=== PATIENT | female | born 1995 | race Caucasian/White ===

== ENCOUNTER 2018-05-05 13:20 | Emergency (ER) | payer MEDICAID ==
--- NOTE | 2018-05-05 13:45 | EDM.PDOC ---
ED HPI GENERAL MEDICAL PROBLEM - General Chief Complaint: ENT Problem Stated Complaint: TOOTH PAIN CAUSING EAR ACHE Time Seen by Provider: 05/05/18 13:39 Source of Information: Reports: Patient History Limitations: Reports: No Limitations - History of Present Illness INITIAL COMMENTS - FREE TEXT/NARRATIVE: Patient comes in with complaints of left lower tooth pain for the last 2 days. Denies fever, chills, or general illness. Does endorse some left sided ear pain with this. Is unable to tell me when her last dental visit was due to how long it has been since her last visit. She denies all other complaints when asked. Allergies to PCN and amoxicillin. Onset: Gradual Onset Date: 05/03/18 Duration: Getting Worse Left Oral/Mouth Pain Score (Numeric/FACES): 10 - Related Data Allergies Allergy/AdvReac Type Severity Reaction Status Date / Time amoxicillin Allergy Rash Verified 05/05/18 13:37 Penicillins Allergy Rash Verified 05/05/18 13:37 Past Medical History Psychiatric History: Reports: Depression Social & Family History - Tobacco Use Smoking Status *Q: Unknown Ever Smoked ED ROS GENERAL - Review of Systems Review Of Systems: See Below Constitutional: Reports: No Symptoms HEENT: Reports: Dental Pain, Ear Pain Respiratory: Reports: No Symptoms Cardiovascular: Reports: No Symptoms Endocrine: Reports: No Symptoms GI/Abdominal: Reports: No Symptoms : Reports: No Symptoms Musculoskeletal: Reports: No Symptoms Skin: Reports: No Symptoms Neurological: Reports: No Symptoms Psychiatric: Reports: No Symptoms Hematologic/Lymphatic: Reports: No Symptoms Immunologic: Reports: No Symptoms ED EXAM, GENERAL - Physical Exam Exam: See Below Exam Limited By: No Limitations General Appearance: Alert, WD/WN, No Apparent Distress Eye Exam: Bilateral Eye: EOMI, Normal Inspection Ears: Normal TMs Nose: Normal Inspection Throat/Mouth: No: Normal Teeth (multiple teeth have extensive decay. Left lower molar with decay and cracked.) Head: Atraumatic, Normocephalic Neck: Normal Inspection, Supple, Non-Tender, Full Range of Motion Respiratory/Chest: No Respiratory Distress, Lungs Clear, Normal Breath Sounds, No Accessory Muscle Use, Chest Non-Tender Cardiovascular: Normal Peripheral Pulses, Regular Rate, Rhythm, No Edema, No Gallop, No JVD, No Murmur, No Rub GI/Abdominal: Normal Bowel Sounds, Soft, Non-Tender, No Organomegaly, No Distention, No Abnormal Bruit, No Mass Neurological: Alert, Oriented, CN II-XII Intact, Normal Cognition, Normal Gait, Normal Reflexes, No Motor/Sensory Deficits Psychiatric: Normal Affect, Normal Mood Skin Exam: Warm, Dry, Intact, Normal Color, No Rash Course - Vital Signs Last Recorded V/S: Last Vital Signs Temp 36.7 C 05/05/18 13:25 Pulse 70 05/05/18 13:25 Resp 16 05/05/18 13:25 BP 146/97 H 05/05/18 13:25 Pulse Ox 99 05/05/18 13:25 - Orders/Labs/Meds Meds: Medications Discontinued Medications Generic Name Dose Route Start Last Admin Trade Name Freq PRN Reason Stop Dose Admin Clindamycin HCl 3 packet 05/05/18 13:45 05/05/18 14:08 Take Home: Clindamycin Hcl 150 Mg, 6 Cap Pack PO 05/05/18 13:46 3 packet ONETIME ONE Administration Clindamycin HCl 300 mg 05/05/18 13:47 05/05/18 14:04 Cleocin PO 05/05/18 13:48 300 mg ONETIME ONE Administration Ketorolac Tromethamine 30 mg 05/05/18 13:47 05/05/18 14:05 Toradol IM 05/05/18 13:48 30 mg ONETIME ONE Administration Lidocaine HCl 10 ml 05/05/18 13:39 05/05/18 14:13 Xylocaine-Mpf 2% (Sterile-Daniel) INJECT 05/05/18 13:40 10 ml ONETIME ONE Administration Departure - Departure Time of Disposition: 14:33 Disposition: Home, Self-Care 01 Condition: Good Clinical Impression: Dental caries - Discharge Information *PRESCRIPTION DRUG MONITORING PROGRAM REVIEWED*: Not Applicable *COPY OF PRESCRIPTION DRUG MONITORING REPORT IN PATIENT MICHAEL: Not Applicable Instructions: Dental Abscess, [id number], Clindamycin capsules, Probiotics Referrals: Amy Louie NP [Primary Care Provider] - Forms: ED Department Discharge Additional Instructions: Plan 1. Follow up with a dentist for definitive treatment that could include cavity filling or extraction 2. Take Clindamycin as prescribed. Fill your prescription on Monday for the rest. You will take this for 7 total days and finish the course even if feeling better 3. Discontinue Clindamycin use only if you have signs of allergic reaction such as skin rash, swelling of the face and neck, difficulty breathing 4. Take either a probiotic or eat 1-2 servings of yogurt daily to prevent a bacterial infection of the gut due to antibiotic use 5. Alternate ibuprofen and tylenol for pain control 6. Please call if you have any additional questions or concerns - Problem List & Annotations (1) Dental caries SNOMED Code(s): 21034372 Code(s): K02.9 - DENTAL CARIES, UNSPECIFIED Status: Acute Priority: Medium - Problem List Review Problem List Initiated/Reviewed/Updated: Yes - Assessment/Plan Assessment:: dental caries Plan: Plan 1. Follow up with a dentist for definitive treatment that could include cavity filling or extraction 2. Take Clindamycin as prescribed. Fill your prescription on Monday for the rest. You will take this for 7 total days and finish the course even if feeling better 3. Discontinue Clindamycin use only if you have signs of allergic reaction such as skin rash, swelling of the face and neck, difficulty breathing 4. Take either a probiotic or eat 1-2 servings of yogurt daily to prevent a bacterial infection of the gut due to antibiotic use 5. Alternate ibuprofen and tylenol for pain control 6. Please call if you have any additional questions or concerns
[2018-05-05] MEDS: Clindamycin HCl 150 MG Cap PO ONE (14:04)
[2018-05-05] MEDS: Ketorolac 30 MG/ML SDV IM ONE (14:05)
[2018-05-05] MEDS: Take Home: Clindamycin HCl 150 MG Cap, 6 Cap Pack PO ONE (14:08)
[2018-05-05] MEDS: Lidocaine 2% 10 ML Amp INJECT ONE (14:13)
== END 2018-05-05 14:33 | disposition home or self-care (01) ==
LOC: VM.ED 13:20
DX: K02.9 Dental caries, unspecified (principal); Z88.1 Allergy status to other antibiotic agents; Z88.0 Allergy status to penicillin
CPT/HCPCS: 64400; 96372; 99282-25; A9270-GY; J1885; J2001

== ENCOUNTER 2018-06-05 00:42 | Emergency (ER) | payer MEDICAID ==
[2018-06-05] MEDS ORDERED: Clindamycin HCl 150 MG Cap PO ONE (01:17)
[2018-06-05] MEDS ORDERED: Ketorolac 30 MG/ML SDV IM ONE (01:18)
[2018-06-05] MEDS ORDERED: Take Home: Clindamycin HCl 150 MG Cap, 6 Cap Pack PO ONE (01:24)
--- NOTE | 2018-06-05 01:24 | EDM.PDOC ---
ED HPI GENERAL MEDICAL PROBLEM - General Chief Complaint: ENT Problem Stated Complaint: dental pain Time Seen by Provider: 06/05/18 01:02 Source of Information: Reports: Patient History Limitations: Reports: No Limitations - History of Present Illness INITIAL COMMENTS - FREE TEXT/NARRATIVE: Patient presents with complaints of left lower tooth pain. I did see her for the exact complaint. She did finish the clindamycin course, but did not see a dentist. She states she has some mild swelling to the left posterior tooth. She denies fever, chills, neck pain. Also denies any lymph node enlargement. No other complaints. Onset: Gradual Onset Date: 06/03/18 Duration: Getting Worse Location: Reports: Face Left Lower Pain Score (Numeric/FACES): 10 - Related Data Allergies Allergy/AdvReac Type Severity Reaction Status Date / Time amoxicillin Allergy Rash Verified 06/05/18 00:43 Penicillins Allergy Rash Verified 06/05/18 00:43 Home Meds: Home Meds FLUoxetine HCl [Prozac] 20 mg PO DAILY 06/05/18 [History] Levonorgestrel-Ethin Estradiol [Vienva-28 Tablet] 1 each PO DAILY 06/05/18 [ History] Past Medical History Psychiatric History: Reports: Depression Social & Family History - Tobacco Use Smoking Status *Q: Never Smoker ED ROS ENT - Review of Systems Review Of Systems: See Below Constitutional: Reports: No Symptoms HEENT: Reports: Dental Pain, Other (left lower jaw facial swelling) Respiratory: Reports: No Symptoms Cardiovascular: Reports: No Symptoms Endocrine: Reports: No Symptoms GI/Abdominal: Reports: No Symptoms : Reports: No Symptoms Musculoskeletal: Reports: No Symptoms Skin: Reports: No Symptoms Neurological: Reports: No Symptoms Psychiatric: Reports: No Symptoms Hematologic/Lymphatic: Reports: No Symptoms Immunologic: Reports: No Symptoms ED EXAM, ENT - Physical Exam Exam: See Below Exam Limited By: No Limitations General Appearance: Alert, WD/WN, No Apparent Distress Eye Exam: Bilateral Eye: EOMI, PERRL Ears: Normal TMs Nose: Normal Inspection, Normal Mucousa, No Blood Mouth/Throat: Dental Abcess, Dental Pain, Dental Tenderness. No: Bleeding, Dental Trauma, Drooling, Muffled Voice, Peritonsillar Mass, Pharyngeal Erythema Head: Atraumatic, Normocephalic Neck: Normal Inspection, Supple, Non-Tender, Full Range of Motion Neurological: Alert, Oriented, CN II-XII Intact, Normal Cognition, Normal Gait, Normal Reflexes, No Motor/Sensory Deficits Skin: Warm, Dry, Intact, Normal Color, No Rash Lymphatic: No Adenopathy Course - Vital Signs Last Recorded V/S: Last Vital Signs Temp 37.0 C 06/05/18 00:45 Pulse 64 06/05/18 00:45 Resp 16 06/05/18 00:45 BP 139/92 H 06/05/18 00:45 Pulse Ox 98 06/05/18 00:45 - Orders/Labs/Meds Meds: Medications Discontinued Medications Generic Name Dose Route Start Last Admin Trade Name Freq PRN Reason Stop Dose Admin Clindamycin HCl 450 mg 06/05/18 01:17 06/05/18 01:24 Cleocin PO 06/05/18 01:18 450 mg ONETIME ONE Administration Clindamycin HCl 1 packet 06/05/18 01:24 06/05/18 01:31 Take Home: Clindamycin Hcl 150 Mg, 6 Cap Pack PO 06/05/18 01:25 1 packet ONETIME ONE Administration Ketorolac Tromethamine 30 mg 06/05/18 01:18 06/05/18 01:28 Toradol IM 06/05/18 01:19 30 mg ONETIME ONE Administration Lidocaine HCl 5 ml 06/05/18 01:06 06/05/18 01:13 Xylocaine-Mpf 1% INJECT 06/05/18 01:07 5 ml ONETIME ONE Administration - Re-Assessments/Exams Free Text/Narrative Re-Assessment/Exam: 06/05/18 01:52 patient provided with lidocaine block to posterior bottom maxillary nerve. Patient tolerated well, no complaints. Given IM toradol and clindamycin. Discharged and stable in my care here. Departure - Departure Time of Disposition: 01:45 Disposition: Home, Self-Care 01 Condition: Good Clinical Impression: Dental abscess - Discharge Information *PRESCRIPTION DRUG MONITORING PROGRAM REVIEWED*: Not Applicable *COPY OF PRESCRIPTION DRUG MONITORING REPORT IN PATIENT MICHAEL: Not Applicable Instructions: Dental Abscess, [id number], Clindamycin capsules, Probiotics Referrals: PCP,Unobtain [Primary Care Provider] - Forms: ED Department Discharge Additional Instructions: Plan 1. Take 300 mg Clindamycin every 6 hours. As before make sure to take the entire course for 7 days even if feeling better. 2. Make sure to have a dentist evaluate and fix or extract your tooth. This will keep happening to you if you do not. 3. Take either probiotics or eat 1-2 servings of yogurt to prevent a bacterial infection of the abdomen/intestines from being on antibiotics 4. Stay well hydrated 5. Please call if you have any additional questions or concerns - Problem List & Annotations (1) Dental abscess SNOMED Code(s): 131970073 Code(s): K04.7 - PERIAPICAL ABSCESS WITHOUT SINUS Status: Acute Priority : Low Current Visit: Yes - Problem List Review Problem List Initiated/Reviewed/Updated: Yes - Assessment/Plan Assessment:: tooth abscess Plan: Plan 1. Take 300 mg Clindamycin every 6 hours. As before make sure to take the entire course for 7 days even if feeling better. 2. Make sure to have a dentist evaluate and fix or extract your tooth. This will keep happening to you if you do not. 3. Take either probiotics or eat 1-2 servings of yogurt to prevent a bacterial infection of the abdomen/intestines from being on antibiotics 4. Stay well hydrated 5. Please call if you have any additional questions or concerns
== END 2018-06-05 01:35 | disposition home or self-care (01) ==
LOC: VM.ED 00:42
DX: K04.7 Periapical abscess without sinus (principal); F32.9 Major depressive disorder, single episode, unspecified; Z79.899 Other long term (current) drug therapy; Z88.0 Allergy status to penicillin; Z88.1 Allergy status to other antibiotic agents
CPT/HCPCS: 64400; 96372; 99282; A9270; J1885; J2001